=== PATIENT | male | born 1980 | race Two or more races ===

== ENCOUNTER 2017-06-14 11:00 | Emergency (ER) | payer SELFPAY ==
[~2017-06-14] VITALS: Ht 170.2 cm; Wt 123.0 kg
[2017-06-14 11:31] VITALS: BP 129/90
== END 2017-06-14 18:08 | disposition left against medical advice (07) ==
LOC: ER 11:49
DX: N50.819 Testicular pain, unspecified (principal); Z53.21 Procedure and treatment not carried out due to patient leaving prior to being seen by health care provider